=== PATIENT | male | born 1985 | race African-American/Black ===

== ENCOUNTER 2023-06-22 17:11 | Emergency (ER) | payer SELFPAY ==
--- NOTE | 2023-06-22 17:16 | PC.NURSE ---
PT DECLINES TO STAY BECAUSE HE WAS INFORMED THAT OUR POLICY IS TO NOT HAVE CHILDREN UNDER THE AGE OF 16 VISITING IN THE HOSPITAL.
== END 2023-06-22 17:20 | disposition left against medical advice (07) ==
DX: Z53.21 Procedure and treatment not carried out due to patient leaving prior to being seen by health care provider (principal)
CPT/HCPCS: 99199